=== PATIENT | female | born 1960 | race Caucasian/White ===

== ENCOUNTER 2018-11-16 05:15 | Inpatient (IN) ==
[2018-11-08 15:51] LABS: Appearance,Urine CLOUDY; Bacteria,Urine 0 /hpf (0); Bilirubin,Urine NEG (NEG); Color,Urine YELLOW; Culture Indicated,Urine NO; Glucose,Urine (UA) NEGATIVE (NEG); Ketones,Urine NEG (NEG); Leukocyte Esterase,Urine NEG /uL (NEG); Mucus,Urine FEW /hpf (0); Nitrate,Urine NEG (NEG); Protein,Urine NEG (NEG); Specific Gravity,Urine 1.023 (1.000-1.035); Urine Blood NEG mg/dL (<0.03); Urine RBC 4 /hpf (0-1); Urine Squamous Epithelial Cell 4 /hpf (0-4); Urine WBC 2 /hpf (0-4); Urobilinogen,Urine NEG (NEG)
[2018-11-08 15:56] LABS: Basophils # (Auto) 0.1 K/mcL (0.0-0.3); Basophils % (Auto) 0.7 % (0.0-2.0); Eosinophils # (Auto) 0.2 K/mcL (0.0-0.7); Granulocytes % (Auto) 56.7 % (38.0-78.0); Hematocrit 43.9 % (36.0-48.0); Hemoglobin 14.3 g/dL (12.0-15.0); Lymphocytes # (Auto) 3.4 K/mcL (1.5-4.8); Lymphocytes % (Auto) 35.2 % (15.5-49.0); Mean Cell Volume 88.8 fL (80.0-100.0); Mean Corpuscular HGB Conc 32.7 g/dL (31.0-36.0); Mean Platelet Volume 10.2 fL (7.4-10.4); Monocytes # (Auto) 0.5 K/mcL (0.1-0.9); Monocytes % (Auto) 5.4 % (1.0-12.0); Platelet Count 355 K/mcL (140-440); RBC 4.94 M/mcL (4.00-5.20); Red Cell Distribution Width 13.1 % (11.5-14.5); WBC 9.6 K/mcL (4.5-11.0)
[2018-11-08 16:08] LABS: Blood Urea Nitrogen 15 mg/dl (6-20); Calcium 9.3 mg/dl (8.6-10.4); Carbon Dioxide 23 mmol/L (22-30); Chloride 106 mmol/L (96-108); Glomerular Filtration Rate 80; Glucose 117 mg/dL (70-105); Potassium 3.9 mmol/L (3.3-5.1); Sodium 144 mmol/L (133-145)
[2018-11-16] MEDS ORDERED: ceFAZolin 2 GM in DEXTROSE 5% IN WATER 50 ML IV SCH (06:00)
[2018-11-16] MEDS ORDERED: 0.9 % SODIUM CHLORIDE 9 ML, KETOROLAC 30 MG, ROPIVACAINE HCL/PF 49.5 ML, EPINEPHrine 0.... IJ SCH (06:00)
[2018-11-16] MEDS ORDERED: ROPIVACAINE HCL/PF 20 ML VIAL IJ ONE (07:25)
[2018-11-16] MEDS ORDERED: LIDOCAINE HCL/PF 100 MG/5 ML SYRINGE IV ONE (07:25)
[2018-11-16] MEDS ORDERED: TRANEXAMIC ACID 1,000 MG/10 ML VIAL IV ONE (07:25)
[2018-11-16] MEDS ORDERED: DEXAMETHASONE 10 MG/ML VIAL IV ONE (07:25)
[2018-11-16] MEDS ORDERED: fentaNYL 100 MCG/2 ML VIAL IV ONE (07:25)
[2018-11-16] MEDS ORDERED: ONDANSETRON 4 MG/2 ML VIAL IV ONE (07:25)
[2018-11-16] MEDS ORDERED: HYDROmorphone 2 MG/ML VIAL IV ONE (07:25)
[2018-11-16] MEDS ORDERED: PROPOFOL 200 MG/20 ML VIAL IV ONE (07:25)
[2018-11-16] MEDS ORDERED: MIDAZOLAM 5 MG/5 ML VIAL IV ONE (07:25)
[2018-11-16] MEDS ORDERED: GENTAMICIN SULFATE 800 MG/20 ML VIAL IR ONE (07:46)
[2018-11-16] MEDS ORDERED: fentaNYL 100 MCG/2 ML VIAL IV PRN (08:29)
[2018-11-16] MEDS ORDERED: KETOROLAC 15 MG/ML VIAL IV PRN (08:29)
[2018-11-16] MEDS ORDERED: ATROPINE SULFATE 0.4 MG/ML VIAL IV PRN (08:29)
[2018-11-16] MEDS ORDERED: FLUMAZENIL 0.1 MG/ML ML IV PRN (08:29)
[2018-11-16] MEDS ORDERED: NALOXONE HCL 0.4 MG/ML VIAL IV PRN (08:29)
[2018-11-16] MEDS ORDERED: ACETAMINOPHEN 1,000 MG/100 ML BOTTLE IV ONE (08:29)
[2018-11-16] MEDS ORDERED: HYDROmorphone 2 MG/ML VIAL IV PRN (08:29)
[2018-11-16] MEDS ORDERED: ePHEDrine 50 MG/ML AMPUL IV PRN (08:29)
[2018-11-16] MEDS ORDERED: diphenhydrAMINE 50 MG/ML VIAL IV PRN (08:29)
[2018-11-16] MEDS ORDERED: PROMETHAZINE 25 MG/ML VIAL IV PRN (08:29)
[2018-11-16] MEDS ORDERED: ONDANSETRON 4 MG/2 ML VIAL IV PRN (08:29)
[2018-11-16] MEDS ORDERED: METOPROLOL TARTRATE 5 MG/5 ML VIAL IV PRN (08:29)
[2018-11-16] MEDS ORDERED: METHOCARBAMOL 1,000 MG/10 ML VIAL IV PRN (08:29)
[2018-11-16] MEDS ORDERED: MEPERIDINE 25 MG/ML SYRINGE IV PRN (08:29)
[2018-11-16] MEDS ORDERED: IPRATROPIUM/ALBUTEROL 3 ML AMPUL.NEB NEB PRN (08:29)
[2018-11-16] MEDS ORDERED: BISACODYL 10 MG SUPP.RECT PR PRN (09:18)
[2018-11-16] MEDS ORDERED: MAGNESIUM HYDROXIDE 30 ML ORAL.SUSP PO PRN (09:18)
[2018-11-16] MEDS ORDERED: BENZOCAINE/MENTHOL 1 LOZENGE PO PRN (09:18)
[2018-11-16] MEDS ORDERED: POLYETHYLENE GLYCOL 3350 17 GM PACKET PO PRN (09:18)
[2018-11-16] MEDS ORDERED: FLEETS ADULT ENEMA PR PRN (09:18)
[2018-11-16] MEDS ORDERED: TRANEXAMIC ACID 1,000 MG/10 ML VIAL IV SCH (09:18)
--- NOTE | 2018-11-16 09:23 | Brief Operative Note ---
Date of procedure: 11/16/18 Pre-op diagnosis: DJD left knee Post-op diagnosis: same Procedure: TKR Grafts/Implants: Yes (left knee triathlon) Anesthesia: JONELLE Surgeon: Doroteo Tadeo General Doc: Roger Michelle Estimated blood loss (cc): 100 Tourniquet Time (Minutes): 72 Specimens Removed/Pathology: none sent Condition: stable Disposition: PACU
--- NOTE | 2018-11-16 10:14 | XRay Report ---
HISTORY: Postop left knee arthroplasty FINDINGS: There is a well-positioned left total knee prosthesis. There is no fracture. There is a ring-shaped calcification in the soft tissues medial to the knee. This could be a phlebolith. IMPRESSION: Well-positioned left knee prosthesis Interpreted and Authenticated by: Carlos Damon 11/16/18
[2018-11-16] MEDS: 0.9 % SODIUM CHLORIDE 1,000 ML IV SCH (10:55)
[2018-11-16] MEDS: HYDROcodone/APAP 10/325MG TABLET PO PRN (12:49)
[2018-11-16] MEDS: ceFAZolin 1 GM VIAL IV SCH ×2 (14:16→22:34)
[2018-11-16] MEDS: 0.9 % SODIUM CHLORIDE 10 ML SYRINGE IV SCH ×2 (14:17→20:32)
[2018-11-16] MEDS: ONDANSETRON 4 MG/2 ML VIAL IV PRN ×2 (15:34→19:16)
[2018-11-16] MEDS: oxyCODONE/APAP 10/325MG TABLET PO PRN (18:44)
[2018-11-16] MEDS: DOCUSATE SODIUM 100 MG CAPSULE PO SCH (20:32)
[2018-11-16] MEDS: ASPIRIN 81 MG TAB.CHEW PO SCH (20:32)
[2018-11-16] MEDS ORDERED: LORazepam 1 MG TABLET PO PRN (21:00)
[2018-11-16] MEDS ORDERED: SENNOSIDES 1 TABLET PO SCH (21:00)
[2018-11-17] MEDS: 0.9 % SODIUM CHLORIDE 1,000 ML IV SCH (01:21)
[2018-11-17] MEDS: HYDROcodone/APAP 10/325MG TABLET PO PRN (01:45)
[2018-11-17] MEDS: oxyCODONE/APAP 10/325MG TABLET PO PRN ×2 (05:33→09:52)
[2018-11-17] MEDS: 0.9 % SODIUM CHLORIDE 10 ML SYRINGE IV SCH (06:11)
[2018-11-17] MEDS: ASPIRIN 81 MG TAB.CHEW PO SCH (08:05)
[2018-11-17] MEDS: DOCUSATE SODIUM 100 MG CAPSULE PO SCH (08:05)
--- NOTE | 2018-11-17 08:13 | Discharge Summary ---
Providers - Providers Patient information: Note initiated : 11/17/18 at 8:09 am Service Date, if different from initiated Date: [] Patient: Daniel Hernandez 58 y/o F admitted on 11/16/18 for Left Total Knee Arthroplasty Carlos A. Chief Complaint: [] Discharge date: 11/17/18 Hospitalization Hospital course: Patient is doing well and will discharge to home today. She was admitted for pain control and PT after TKA. no complications. Discharge diagnosis: s/p Left Total knee arthroplasty Exam - Exam Incision healing: Yes Weight bearing status: full Range of motion: 5-90 Ortho Discharge - TKA - Patient Instructions Diet: Regular Diet Activity: activity as tolerated Total Knee Protocol: For Total Knee: Start ROM BANDAR with stationary bike or rocking chair. Work on gaining full extension of knee. Posterior dislocation precautions provided. Hip abductor strengthening and gait training instructions provided. Apply Cryocuff as instructed. Dressing Care: May shower in 2 days - Follow Up Plan Follow Up Appointments: Roger Michelle PA-C [Physician [employer] Collection System Operator] - 12/01/18 10:00 am Disposition: Home, Self-Care Prognosis: Good Rehab Potential: Good I certify that the patient requires SNF services: No Overall status at discharge: patient is progressing back to baseline - Orders For Discharge Prescriptions: Aspirin [Aspirin EC] 325 mg PO BID #60 tablet. Methocarbamol [Robaxin-750] 750 mg PO TID #60 tab oxyCODONE HCL/ACETAMINOPHEN [Percocet 10-325 mg Tablet] 1 each PO Q4-6HP PRN #90 tab PRN Reason: Pain Pending Studies Resuscitation Status Full Code Diet Regular Diet Start TueNovember 16 Lunch Hydrocodone Bitart/Acetaminophen ([place] 10/325mg) 0 tab PO Q4HP PRN PRN Reason: PAIN LEVEL 3-6 Last Admin: 11/17/18 01:45 Dose: 2 tab Documented by: Admin: 11/16/18 12:49 Dose: 2 tab Documented by: DANIEL Aspirin (Aspirin) 81 mg PO BID [facility] Last Admin: 11/17/18 08:05 Dose: 81 mg Documented by: Admin: 11/16/18 20:32 Dose: 81 mg Documented by: MO Docusate Sodium (Colace) 100 mg PO BID [facility] Last Admin: 11/17/18 08:05 Dose: 100 mg Documented by: Admin: 11/16/18 20:32 Dose: 100 mg Documented by: MO Lisinopril (Zestril) 20 mg PO DAILY [facility] Last Admin: 11/17/18 08:05 Dose: 20 mg Documented by: MARIA LUZ Lorazepam (Ativan) 1 mg PO HSP PRN PRN Reason: Insomnia Last Admin: 11/16/18 20:36 Dose: 1 mg Documented by: MO Morphine Sulfate (Morphine) 0 mg IV Q1HP PRN PRN Reason: PAIN LEVEL > 6 Last Admin: 11/16/18 14:09 Dose: 4 mg Documented by: DANIEL Ondansetron HCl (Zofran) 4 mg IV Q4HP PRN PRN Reason: Nausea And Vomiting Last Admin: 11/16/18 19:16 Dose: 4 mg Documented by: Admin: 11/16/18 15:34 Dose: 4 mg Documented by: DANIEL Oxycodone/Acetaminophen (Percocet 10-325mg) 2 tab PO Q4-6HP PRN PRN Reason: PAIN LEVEL 3-6 Last Admin: 11/17/18 05:33 Dose: 2 tab Documented by: Admin: 11/16/18 18:44 Dose: 2 tab Documented by: MO Senna (Senokot) 2 tab PO HS [facility] Last Admin: 11/16/18 20:32 Dose: 2 tab Documented by: MO Sodium Chloride (Saline Flush) 10 ml IV Q8 [facility] Last Admin: 11/17/18 06:11 Dose: Not Given Documented by: Admin: 11/16/18 20:32 Dose: 10 ml Documented by: Admin: 11/16/18 14:17 Dose: Not Given Documented by: DANIEL Shift Summary 11/17/18 03:49 Shift Summary by Minal Hernández s/p left tka, kalyn wrap to leg c/d/i, no numbness/tingling, has been using cryo cuff and ice packs, used foot pump until hs,cpm used about 4 hours at 70 degrees,ambulatory well with fww but still needs assist getting her leg into bed, good appetite and po fluid intake, voiding well, ivf stopped and s/l, IS at 2500, has been medicated with ativan at hs and percocet and norco, percocet works better, vss. Initialized on 11/17/18 03:49 - END OF NOTE
[2018-11-17] MEDS ORDERED: LISINOPRIL 20 MG TABLET PO SCH (09:00)
--- NOTE | 2018-11-17 09:21 | Operative Note ---
DATE OF OPERATION: 11/16/2018 PREOPERATIVE DIAGNOSIS: Degenerative joint disease of the left knee. POSTOPERATIVE DIAGNOSIS: Degenerative joint disease of the left knee. OPERATION: Carlos A-assisted left total knee replacement. SURGEON: Doroteo Tadeo M.D. ARCGIS DEVELOPER: Roger Michelle PA-C. The PA's assistance was required for the safe and efficient completion of the entire case. This provider's expertise and technical skill were required throughout the case. The PA assisted with preoperative coordination, intraoperative retraction, wound closure, dressing and splint application, as well as postoperative documentation and care coordination. ANESTHESIA: General. SUMMARY OF PROCEDURE: General anesthesia was attained. The left leg was prepped and draped. A midline incision was made from the quadriceps to the tibial tubercle. This was taken down sharply to the quadriceps and medial retinaculum. A mid vastus approach was used, and the quadriceps and retinaculum split. The menisci were resected. The ACL was released. Two stab incisions were made in the femur, two in the tibia. These incisions were spread down to bone using a hemostat. Two pegs were placed into the femur and then the femoral array placed. The same thing was done on the tibia for the tibial array. A checkpoint was placed into the femur and a second one into the tibia. The hip center was located with rotation of the hip in a counterclockwise direction. The medial malleolus was identified with a probe, as was the lateral malleolus. Forty anatomical landmarks were identified on the femur and forty on the tibia. Balancing was then done using the Carlos A program, getting excellent balance in flexion-extension, as well as a match in the balance. The bone cuts were next made. The bone was removed. The patella was everted. A measured resection of the patella was done, removing 10 mm of patella and leaving 13 mm of depth. The patella sized to a 35. The femur sized to a 5 and the tibia to a 4. The best combination of full range of motion with stability in flexion-extension was with a 13 mm trial. We, therefore, used a 13 mm CS insert. All bony surfaces were thoroughly irrigated. Cement was applied using the cemen gun to apply cement to the prosthesis, and an osteotome to apply it to the anterior femur The components were impacted in The cement was left to harden with the knee in full extension and a clamp placed on the patella. The tourniquet was let down. All bleeding points were coagulated. Tourniquet time was 72 minutes. EBL was 100 mL. The wound was closed in layers. An 0 FiberWire and a running locking 0 [place] was used for the medial retinaculum and vastus lateralis. The subcutaneous tissue was closed with interrupted buried 2-0 Monocryl, and the skin was closed with a Dura-Castro. Prior to implantation, the knee was injected throughout with a multimodal solution prepared by the pharmacy by protocol for postoperative analgesia. The sponge and needle count was correct. The patient tolerated the procedure well and was taken to the recovery room in stable condition. TJF:[email or web address] Job ID: [id number] Doc ID: [id number] Doroteo Tadeo MD MTDD
== END 2018-11-17 12:05 | disposition home or self-care (01) | DRG 470 ==
LOC: MEDSUR 05:15
PROVIDERS: ADMIT Orthopaedic Surgery Foot and Ankle Surgery; ATTEND Orthopaedic Surgery Foot and Ankle Surgery